=== PATIENT | male | born 1970 | race Caucasian/White ===

== ENCOUNTER 2025-01-16 16:39 | Emergency (ER) | payer MEDICAID ==
[~2025-01-16] VITALS: Ht 165.1 cm; Wt 102.1 kg
[2025-01-16 18:06] VITALS: BP 148/88; TEMP 98.2; O2SAT 95
== END 2025-01-16 18:06 | disposition home or self-care (01) ==
LOC: ER 16:45
DX: R45.6 Violent behavior (principal); I10 Essential (primary) hypertension; Z88.0 Allergy status to penicillin; Z86.73 Personal history of transient ischemic attack (TIA), and cerebral infarction without residual deficits
CPT/HCPCS: 82962-TC